=== PATIENT | male | born 1955 | race Asian ===

== ENCOUNTER 2025-08-17 13:35 | Outpatient (CLI) | payer OTHER ==
[2025-08-17 14:07] LABS: Estimated GFR - POC 43.0
== END 2025-08-17 13:36 | disposition home or self-care (01) ==
LOC: CSHMRI 13:35
PROVIDERS: ATTEND Otolaryngology Plastic Surgery within the Head & Neck
DX: H93.13 Tinnitus, bilateral (principal)
CPT/HCPCS: 36415; 70553; 82565